=== PATIENT | female | born 1945 | race Caucasian/White ===

== ENCOUNTER 2017-02-01 09:05 | Inpatient (IN) | payer MEDICARE ==
[2017-02-01] VITALS (8 sets, daily range): BP systolic 119–185; BP diastolic 58–98; PULSE 62–88; RESP 16–20; O2SAT 96–100
[~2017-02-01] VITALS: Ht 177.8 cm; Wt 86.1 kg
--- NOTE | 2017-02-01 09:02 | ED.REPORT ---
HPI-Extremity Problem Lower Date of Service Feb 01, 2017 ED Provider: Dr. Goss The pt is a 71 y/o female with a hx of bilateral knee replacement, type II DM, and HTN who presents to the ED via EMS complaining of worsening left thigh pain , onset yesterday after she tripped and fell on the sidewalk. The paramedics were called who helped her into a wheelchair. She reports staying in the wheelchair since then because her pain worsens with movement. She took a hydrocodone this morning but did not experience significant relief. She reports similar pain for several years. It has been investigated multiple times but the imaging results are always normal and no cause of her pain has been discovered. Nursing Notes Stated Complaint: LEFT LEG PAIN Nursing Notes Reviewed: Yes Allergies: Coded Allergies: bupropion HCl (Verified Allergy, Mild, DIZZY, LIGHTHEADED, 02/01/17) oxycodone HCl (Verified Allergy, Unknown, CAN'T FUNCTION, 02/01/17) Scheduled ([Klor-Con]) 10 MEQ PO BID Alprazolam-Expunged Drug, Do Not Renew! (Alprazolam-Expunged Drug, Do Not Renew! ) 1 Mg Tablet 1 MG PO TID Aspirin-Expunged Drug, Do Not Renew! (Aspirin-Expunged Drug, Do Not Renew!) 81 Mg Tablet.dr 81 MG PO BID CHOLECALCIFEROL-Expunged Drug, Do Not Renew! (VITAMIN D-Expunged Drug, Do Not Renew!) 400 Unit Tablet 400 UNIT PO DAILY Cyclobenzaprine-Expunged Drug, Do Not Renew! (Cyclobenzaprine-Expunged Drug, Do Not Renew!) 10 Mg Tablet 10 MG PO DAILY For muscle spasms HCTZ-Expunged Drug, Do Not Renew! (Hydrodiuril-Expunged Drug, Do Not Renew!) 25 Mg Tablet 25 MG PO DAILY Lisinopril-Expunged Drug, Do Not Renew! (Lisinopril-Expunged Drug, Do Not Renew! ) 20 Mg Tablet MG PO DAILY Lorazepam-Expunged Drug, Do Not Renew! (Lorazepam-Expunged Drug, Do Not Renew!) 1 Mg Tablet 1 MG PO PRN Magnesium Oxide (Magnesium) 400 Mg Capsule 250 MG PO BID Metformin-Expunged Drug, Do Not Renew! (Metformin-Expunged Drug, Do Not Renew!) 500 Mg Tab.er.24 500 MG PO BID NITROFURANTOIN MACROCRYSTAL-Expunged Drug, Do (MACRODANTIN-Expunged Drug, Do Not Renew!) 25 Mg Capsule 50 MG PO BID Phentermine Hcl (Suprenza Odt) 37.5 Mg Tab.rapdis 37.5 MG PO BID Simvastatin-Expunged Drug, Choose New Med! (Simvastatin-Expunged Drug, Choose New Med!) 40 Mg Tablet 40 MG PO HS Ubidecarenone (Co Q10) 100 Mg Capsule 100 MG PO DAILY General Time Seen by MD: 09:02 Chief Complaint Thigh injury left Hx Obtained From: Patient Arrived By: Ambulance Onset Occurred: Yesterday Symptom Duration: Since onset Caused by: Fall on ground Location: : Thigh left Quality: Painful Severity: Current: Severe Severity: Maximum: Severe Recent Healthcare: Recent doctor visit Similar Sx Previous: Yes Past Medical History Past Medical History Osteoarthritis Reports: Diabetes mellitus, Hypertension Past Surgical History Both knees Both hips Right shoulder Reports: Appendectomy Smoking History Former Smoker Ambulatory Status Independent Review of Systems Musculoskeletal: Reports: Extremity pain (left thigh) Complete sys rev & neg: except as marked. Physical Exam Initial Vital Signs Vital Signs (First) Date Time Temp Pulse Resp B/P Pulse Ox O2 Delivery O2 Flow Rate FiO2 02/01/17 09:05 36.4 88 18 155/85 100 Room Air Initial VS: Reviewed Head / Eyes: Atraumatic, Normocephalic Neck: Supple, Non-tender, Full range of motion Respiratory: Breath sounds normal, Clear to auscultation, No respiratory distress Cardiovascular: Regular rate & rhythm, Heart sounds normal, Intact distal pulses Abdomen / GI: Soft, Non-tender, No guarding, No rebound, No distention Upper Extremities: Vascular intact, Neuro intact, No swelling, No tenderness Skin: Warm, Dry, No cyanosis Neurologic: Alert, Oriented, Nonfocal Lower Extremity / Pelvis / MS: Neurologic intact, Vascular intact Reports left mid-thigh pain, worsened with movement. Normal peripheral pulses. Good external rotation. Ankle / Foot: Atraumatic, Full range of motion, No swelling, No erythema, Non- tender, No deformity, Neurologic intact, Vascular intact General/Constitutional: Awake, Alert, Cooperative Behavior: Positive: Tearful Interpretation & Diagnostics Lab Results Interpretation Result Diagram: 02/01/17 1022 02/01/17 1022 Test 02/01/17 10:22 White Blood Count 8.5th/mm3 (3.8-10.1) Red Blood Count 4.21mil/mm3 (3.90-5.20) Hemoglobin 12.1g/dL (12.0-15.6) Hematocrit 37.9% (35.0-46.0) Mean Corpuscular Volume 90.0fL (81-100) Mean Corpuscular Hemoglobin 28.7pg (27.0-35.0) Mean Corpuscular Hemoglobin Concent 31.9% (32.0-37.0) Red Cell Distribution Width 14.1% (12.3-15.4) Platelet Count 330bil/L (150-400) Neutrophils (%) (Auto) 82.2% (40-74) Lymphocytes (%) (Auto) 10.4% (14-46) Monocytes (%) (Auto) 6.4% (4-12) Eosinophils (%) (Auto) 0.8% (0-5) Basophils (%) (Auto) 0.1% (0-3) Hold Purple Top Tube Received (Received) Hold Blue Top Tube Received (Received) Sodium Level 138mEq/L (134-144) Potassium Level 4.1mEq/L (3.5-5.2) Chloride Level 98mEq/L (97-108) Carbon Dioxide Level 25mmol/L (18-29) Blood Urea Nitrogen 37mg/dL (8-27) Creatinine 0.89mg/dL (0.57-1.00) Estimat Glomerular Filtration Rate 90mL/min (>59) Glucose Level 232mg/dL (60-99) Calcium Level 10.0mg/dL (8.5-10.1) Total Bilirubin 0.5mg/dL (0.0-1.2) Aspartate Amino Transf (AST/SGOT) 27U/L (0-50) Alanine Aminotransferase (ALT/SGPT) 11U/L (0-32) Alkaline Phosphatase 104U/L (25-165) Total Protein 8.1g/dL (6.4-8.4) Albumin 4.6g/dL (3.4-5.0) Hold [place] Top Tube Received (Received) ECG Interpretation ECG Interpretation: Normal sinus rhythm. Rate 77. Time: 13:09 Interpreted by: ED physician X-Ray Interpretation Xray Interpretation: IMPRESSION: Acute appearing fracture involving the lateral cortex of the proximal left femoral diaphysis, immediately adjacent to the tip of the left total hip arthroplasty previously present. Dictated by: Ben Parker M.D. on 02/01/2017 at 13:16 Approved by: Ben Parker M.D. on 02/01/2017 at 13:18 X-Ray Ordered: Femur left Interpretation / Wet Read by: Interpret - Radiologist Re-Eval/Medical Decision Re-Evaluation/Progress #1: Time of Eval: 09:24 Re-Evaluation/Progress Note: Checked [facility]. The pts last hydrocodone prescription was filled on 12/05 for 120 tabs of 7.5/325 Vicodin Re-Evaluation/Progress #2: Time of Eval: 11:47 Re-Evaluation/Progress Note: Discussed the need to do an X-ray. The pt understands and agrees. All questions answered. Re-Evaluation/Progress #3: Time of Eval: 12:53 Re-Evaluation/Progress Note: Discussed imaging results and plan to admit the pt. She understands and agrees with the plan. All questions answered. Re-Evaluation/Progress #4: Time of Eval: 14:35 Re-Evaluation/Progress Note: Informed the pt that she will be further evaluated by Dr. Kramer. She understands. All questions answered. Consultation #1: Referral / Consult Name: Chris Kramer MD Consulted With: Orthopedic Call Returned at: 12:56 Frequency Checker: Will see patient, Agrees with eval, Agrees with plan Consultation #2: Referral / Consult Name: Jayden Chand MD Consulted With: Hospitalist Call Returned at: 13:21 Frequency Checker: Will see patient, Agrees with eval, Agrees with plan, Accepts admit Counseled Regarding: Diagnosis, Lab results, Need for admission Discharge & Departure Impression: Primary Impression: Left femoral shaft fracture Encounter type: initial encounter Fracture type: closed Fracture morphology : unspecified fracture morphology Qualified Code: S72.302A - Unspecified fracture of shaft of left femur, initial encounter for closed fracture Disposition: ADMITTED TO HOSPITAL Referrals: Shira Jacobson (PCP) Scribe Attestation Portions of this note were transcribed by Joan Senior. Dr.Brownell Karri, personally performed the history,physical exam and medical decision-making;I reviewed and confirmed the accuracy of the information in the transcribed note. Signed by Wil Juarez. 02/01/17 copies to: Shira Jacobson Kirk H MD Feb 01, 2017 09:02 Joan Senior Feb 01, 2017 11:42
[~2017-02-01 09:05] MED LIST: ALPR1TAB2 PO; ASPI-378 PO; ATI1 PO; CHOL400T41 PO; CYCL10TA9 PO; HCTZ25 PO; KLOR-CON PO; LISINOPRIL (*)20 MG PO; MAGN400C PO; METF-487 PO; NITR25CA PO; PHEN-612 PO; SIMV40TA5 PO; UBID100C27 PO
[2017-02-01] MEDS ORDERED: HYDROcodone-APAP 7.5-325 mg Tablet PO ONE (09:25)
[2017-02-01 13:07] LABS: BASOPHILS % (AUTO) 0.1 % (0-3); EOSINOPHILS % (AUTO) 0.8 % (0-5); MONOCYTES % (AUTO) 6.4 % (4-12); Mean Corpuscular Hemoglobin 28.7 pg (27.0-35.0); NEUTROPHILS % (AUTO) 82.2 % (40-74); Platelet Count 330 bil/L (150-400)
--- NOTE | 2017-02-01 13:20 | DRSVH ---
PROCEDURE: X-RAY LEFT FEMUR, TWO VIEWS ([id number]) INDICATIONS: trauma TECHNIQUE: 2 views of the femur were acquired. COMPARISON: [facility], CR, XR PELVIS W LATERAL HIP LT, 01/05/2016, 15:24. FINDINGS: Bones: No dislocations. No suspicious bony lesions. There is a diagonal fracture that extends thro ugh the lateral cortex of the proximal left femoral diaphysis, at the axial level of the tip of the f emoral component of the arthroplasty. This fracture that extends cephalad its exact exit point more superiorly is not seen. More inferiorly no trauma seen over the femur including at the left knee art hroplasty. Soft tissues: No suspicious soft tissue calcifications or masses. IMPRESSION: Acute appearing fracture involving the lateral cortex of the proximal left femoral diaphy sis, immediately adjacent to the tip of the left total hip arthroplasty previously present. Dictated by: Ben Parker M.D. on 02/01/2017 at 13:16 Approved by: Ben Parker M.D. on 02/01/2017 at 13:18
[2017-02-01] MEDS ORDERED: Alum-Mag Hydrox-Simeth 30 mL Suspension PO PRN (13:25)
[2017-02-01] MEDS ORDERED: Ondansetron 2 mg/mL 2 mL Inj IVPUSH PRN (13:25)
[2017-02-01] MEDS ORDERED: Polyethylene Glycol (PEG) 17 Gm Powder PO PRN (13:25)
--- NOTE | 2017-02-01 13:25 | PCM.HPMED ---
Subjective Date of Service Feb 01, 2017 Primary Provider: Admitting Physician: Primary Care Physician: Mitali Attending Physician: Chief Complaint: Left hip pain History of Present Illness: The pt is a 71 y/o female with a hx of bilateral knee replacement, type II DM, HTN, ?PVD presented to the ED via EMS complaining of worsening left thigh pain that started yesterday after she tripped and fell on the sidewalk.XR showed Acute appearing fracture involving the lateral cortex of the proximal left femoral diaphysis. Ortho was consulted. Allergies Coded Allergies: bupropion HCl (Verified Allergy, Mild, DIZZY, LIGHTHEADED, 02/01/17) oxycodone HCl (Verified Allergy, Unknown, CAN'T FUNCTION, 02/01/17) PMH Surgical History Appendectomy Social History Hx Alcohol Use: No Hx Substance Use: Yes (MARIJUANA) Hx Tobacco Use: No Smoking Status: Former Smoker Exam Vital Signs Vital Sign - Last Date Time Temp Pulse Resp B/P Pulse Ox O2 Delivery O2 Flow Rate FiO2 02/01/17 12:25 185/69 02/01/17 10:33 82 17 99 Room Air 02/01/17 10:12 36.6 Exam GENERAL: Alert, not in distress, cooperative HEAD: atraumatic, normocephalic, no bruises. EYES: KELSEY, EOMI, anicteric, able to fully open and close eyelids SKIN: Skin color normal, turgor normal. No visible rashes or lesions. EAR, NOSE, MOUTH, THROAT: Lips, oral mucosa, tongue gums, oropharynx are moist , pink, no lesions. Ears normal appearance, no lesions. NECK: no jugulovenous distention; supple ROM normal. RESPIRATORY: Lungs clear to auscultation. Good diaphragmatic excursion. CARDIAC: normal S1 and S2; no rubs, murmurs, or gallops; regular rate and rhythm ABDOMEN: Abdomen soft, non-tender. BS normal. No masses or organomegaly. MUSCULOSKELETAL: ROM decreased in the left hip secondary to fracture and pain, muscles are not tender EXTREMITIES: no pitting edema in LE, no new deformities or skin discoloration. NEURO: Alert, oriented X 3, Sensation grossly intact., Cranial nerves II-XII intact, Grossly normal motor function. PULSES: 2+ radial, 2+ carotid REVIEW OF SYSTEMS: GENERAL: no malaise, no fevers., SEE HPI HEENT: Negative for frequent or significant headaches All other reviewed and negative other than HPI. Lab and Diagnostics Result Diagram: 02/01/17 1022 X-Rays, CTs and MRIs PROCEDURE: X-RAY LEFT FEMUR, TWO VIEWS ([id number]) INDICATIONS: trauma TECHNIQUE: 2 views of the femur were acquired. COMPARISON: [facility], CR, XR PELVIS W LATERAL HIP LT, 01/05/2016 , 15:24. FINDINGS: Bones: No dislocations. No suspicious bony lesions. There is a diagonal fracture that extends through the lateral cortex of the proximal left femoral diaphysis, at the axial level of the tip of the femoral component of the arthroplasty. This fracture that extends cephalad its exact exit point more superiorly is not seen. More inferiorly no trauma seen over the femur including at the left knee arthroplasty. Soft tissues: No suspicious soft tissue calcifications or masses. IMPRESSION: Acute appearing fracture involving the lateral cortex of the proximal left femoral diaphysis, immediately adjacent to the tip of the left total hip arthroplasty previously present. Assessment & Plan 71 year old female with a past medical history of hypertension, diabetes, peripheral vascular disease presented to the hospital with left hip pain that started yesterday after the patient tripped and fell on her left side. Patient was diagnosed with Acute appearing fracture involving the lateral cortex of the proximal left femoral diaphysis. Orthopedic surgeon was consulted. Acute appearing fracture involving the lateral cortex of the proximal left femoral diaphysis - IV and PO opioids for pain - Heparin for DVT proph DM II - stable - Diabetic diet - ISS, resume home meds later after we able to confirm it with patient's pharmacy as she does not remember details. HTN - stable - hold home meds PVD - resume ASA DVT PROPHYLAXIS: Heparin Code status: Full code Disposition: discharge after patient improves. Plan of care discussed with ED physician; Labs, radiology tests reviewed. Plan of care, medication side effects, home medication, diagnostic procedures and available alternatives were discussed and reviewed with patient/family . All questions answered. Patient/family verbalized understanding, approved and agreed to plan of care. Jayden Chand MD Feb 01, 2017 13:25
--- NOTE | 2017-02-01 14:19 | DRSVH ---
PROCEDURE: X-RAY CHEST ONE VIEW, PORTABLE ([id number]) INDICATIONS: per op TECHNIQUE: One view of the chest was acquired. COMPARISON: None. FINDINGS: Surgical changes and devices: None. Lungs and pleura: There is left basilar atelectasis. No pleural effusions or pneumothorax. Mediastinum: Mediastinal contours appear normal. Heart size is normal. Bones and chest wall: No suspicious bony lesions. Overlying soft tissues appear unremarkable. IMPRESSION: Left basilar atelectasis. Dictated by: Jonny Fountain M.D. on 02/01/2017 at 14:17 Approved by: Jonny Fountain M.D. on 02/01/2017 at 14:17
[2017-02-01 15:32] LABS: APPEARANCE,URINE HAZY (CLEAR,HAZY); COLOR,URINE STRAW (YELLOW); PH,URINE 5.5 (5.0-8.0)
[2017-02-01 15:33] LABS: OCCULT BLOOD,URINE NEGATIVE (NEGATIVE); UROBILINOGEN,URINE NORMAL (NORMAL)
[2017-02-01] MEDS: Heparin 5,000 Unit/mL Inj SUBQ SCH (16:30)
[2017-02-01] MEDS ORDERED: Glucose 40% Oral Gel 15 Gm Tube PO PRN (17:45)
--- NOTE | 2017-02-01 18:22 | NUR ---
Admit/med rec Admitted to [facility] room 1018 from ER at 14:45. Alert and oriented, denies pain at rest. States she had been sitting in a wheelchair at home all night. blanchable redness to buttocks. Admit RN and rn discharge assisting with med rec. Unable to complete at this time r/t unreliable reporting from patient and daughter. Messages left at providers offices to clarify. aware.
[2017-02-01] MEDS: Insulin LISPRO 300 Unit/3 mL Inj SUBQ SCH (21:21)
[2017-02-02] MEDS: Heparin 5,000 Unit/mL Inj SUBQ SCH ×3 (00:10→16:22)
[2017-02-02 00:50] VITALS: BP 135/75; PULSE 83; RESP 18; O2SAT 96
--- NOTE | 2017-02-02 03:13 | NUR ---
Pain Pt. reports pain in hip and back. 2mg IV morphine given and effective for pt's pain. Will continue to monitor.
[2017-02-02 04:50] VITALS: BP 132/76; PULSE 78; RESP 20; O2SAT 95
[2017-02-02] MEDS: Insulin LISPRO 300 Unit/3 mL Inj SUBQ SCH ×4 (08:00→21:40)
[2017-02-02 08:49] VITALS: BP 124/61; PULSE 71; RESP 18; O2SAT 98
[2017-02-02] MEDS ORDERED: CLOP75TA28 PO (12:46)
[2017-02-02] MEDS ORDERED: INSU100I13 SC (12:46)
[2017-02-02] MEDS ORDERED: HUM100IN3 SC (12:46)
[2017-02-02] MEDS ORDERED: AMLO5TAB2 PO (12:46)
[2017-02-02] MEDS ORDERED: HYDR25TA4 PO (12:49)
[2017-02-02] MEDS ORDERED: MAGN400T4 PO (12:49)
[2017-02-02] MEDS ORDERED: POTA10TA12 PO (12:55)
[2017-02-02] MEDS ORDERED: ATOR20TA65 PO (12:55)
[2017-02-02] MEDS ORDERED: CHOL10008 PO (12:55)
[2017-02-02] MEDS ORDERED: METF500T7 PO (12:56)
[2017-02-02] MEDS ORDERED: LISI40TA PO (12:59)
[2017-02-02] MEDS ORDERED: ASPI-973 PO (12:59)
--- NOTE | 2017-02-02 13:57 | PCM.PNMED ---
Subjective Date of Service Feb 02, 2017 Exam Vital Signs Vital Sign - Last Date Time Temp Pulse Resp B/P Pulse Ox O2 Delivery O2 Flow Rate FiO2 02/02/17 08:49 36.5 71 18 124/61 98 Room Air Intake and Output 02/01/17 02/01/17 02/02/17 Cumulative From/Thru 15:00 23:00 07:00 02/01/17 10:12 - 02/01/17 17:50 Intake Total 0 ml 0 ml Output Total 900 ml 400 ml 1300 ml Balance -900 ml -400 ml -1300 ml Intake Oral 0 ml 0 ml Output Urine Total 900 ml 400 ml 1300 ml Exam GENERAL: Alert, not in distress HEAD: atraumatic, normocephalic, no bruises. EYES: EOMI, anicteric, able to fully open and close eyelids SKIN: Skin color normal, turgor normal. No visible rashes or lesions. EAR, NOSE, MOUTH, THROAT: Lips, oral mucosa, tongue are moist, pink, no lesions. NECK: no jugulovenous distention; supple ROM normal. RESPIRATORY: Lungs clear to auscultation. Good diaphragmatic excursion. CARDIAC: normal S1 and S2; no rubs, murmurs, or gallops; regular rate and rhythm ABDOMEN: Abdomen soft, non-tender. BS normal. No masses or organomegaly. MUSCULOSKELETAL: ROM decreased in the left hip secondary to fracture and pain, muscles are not tender EXTREMITIES: no pitting edema in LE, no new deformities NEURO: Alert, oriented X 3, Cranial nerves II-XII intact, Grossly normal motor function. PULSES: 2+ radial, 2+ carotid IVs and Medications Medications Reviewed: Medications were reviewed in detail Lab and Diagnostics Result Diagram: 02/01/17 1022 02/01/17 1022 X-Rays, CTs and MRIs PROCEDURE: X-RAY LEFT FEMUR, TWO VIEWS ([id number]) INDICATIONS: trauma TECHNIQUE: 2 views of the femur were acquired. COMPARISON: [facility], CR, XR PELVIS W LATERAL HIP LT, 01/05/2016 , 15:24. FINDINGS: Bones: No dislocations. No suspicious bony lesions. There is a diagonal fracture that extends through the lateral cortex of the proximal left femoral diaphysis, at the axial level of the tip of the femoral component of the arthroplasty. This fracture that extends cephalad its exact exit point more superiorly is not seen. More inferiorly no trauma seen over the femur including at the left knee arthroplasty. Soft tissues: No suspicious soft tissue calcifications or masses. IMPRESSION: Acute appearing fracture involving the lateral cortex of the proximal left femoral diaphysis, immediately adjacent to the tip of the left total hip arthroplasty previously present. Assessment & Plan 71 year old female with a past medical history of hypertension, diabetes, peripheral vascular disease presented to the hospital with left hip pain that started yesterday after the patient tripped and fell on her left side. Patient was diagnosed with Acute appearing fracture involving the lateral cortex of the proximal left femoral diaphysis. Orthopedic surgeon was consulted. Acute appearing fracture involving the lateral cortex of the proximal left femoral diaphysis - IV and PO opioids for pain - orhtopedic surgery was consulted by ED. - Heparin for DVT proph DM II - stable - Diabetic diet - ISS, resume home meds later after we able to confirm it with patient's pharmacy as she does not remember details. HTN - stable - hold home meds PVD - stable - resume ASA DVT PROPHYLAXIS: Heparin Code status: Full code Disposition: discharge after patient improves. Plan of care discussed with treatment team; Labs, radiology tests reviewed. Plan of care, available alternatives were discussed and reviewed with patient. All questions answered. Patient verbalized understanding, approved and agreed to plan of care. VTE Mechanical Devices: Intermittant Pneumatic CD Jayden Chand MD Feb 02, 2017 13:57
--- NOTE | 2017-02-02 15:06 | NUR ---
Social Work: Initial Assessment Data: See initial assessment. Patient is a 71 year old female who was admitted on 02/01/17 for a left femur fracture per H&P. Patient's insurance is Medicare and [employer] Supp. No PCP is listed at this time. EMR reviewed. SW met with patient to discuss discharge planning. SW role explained. Patient reports that she resides with two roommates in [place]. Patient reports that the home is 2 stories and there are 3 steps at entrance. Patient confirms that she only utilizes the main level. Patient considers her friend Alexandrea Meyer to be a good source of support. Patient confirms that her daughter Franca is her DPOA and that AD have been completed on her behalf. Patient confirms that she is I at baseline and is able to perform all of her ADLs and care needs. Patient states that she does have a cane and a walker at home for use if needed. Patient confirms that she drives via POV. Patient reports that she has used [facility] in the past for RN, PT, OT and PROJECT ASSISTANT. Patient denies a hx of SNF. Patient denies having terminal gauger care insurance or VA benefits. Patient states that upon discharge she will be transported home by a family member or friend. SW provided patient with a discharge planning checklist booklet and encouraged her to call with any questions or concerns. Phone number provided. SW will continue to follow. Assessment: Patient will likely discharge home when medically stable. Plan: Patient will likely discharge home when medically stable. Patient will arrange her own transportation needs. SW will follow for additional needs. SHERRIE Han Addendum: 02/02/17 at 1523 by PATSY CHICAS Amended: Links added.
[2017-02-02 15:19] VITALS: BP 109/66; PULSE 84; RESP 18; O2SAT 98
--- NOTE | 2017-02-02 17:56 | NUR ---
pain management patient has been c/o periodic pain right hip and low back throughout day. IV Morphine PRN and position changes have been effective. educated patient regarding pain management; small doses of pain meds more frequently with pain level starts to increase instead of waiting until pain is too high. patient verbalized understanding. NPO after MN for surgery tomorrow. patient aware and agrees with plan of care.
[2017-02-02 20:45] VITALS: BP 149/73; PULSE 89; RESP 18; O2SAT 98
[2017-02-03] VITALS (14 sets, daily range): BP systolic 121–156; BP diastolic 47–81; PULSE 68–95; RESP 16–21; O2SAT 93–99
[2017-02-03] MEDS: Heparin 5,000 Unit/mL Inj SUBQ SCH ×3 (00:19→17:35)
[2017-02-03] MEDS ORDERED: fentaNYL-PF 50 mCg/mL 2 mL Inj ONE (01:27)
[2017-02-03] MEDS ORDERED: Glucose 40% Oral Gel 15 Gm Tube PO ONE (01:27)
[2017-02-03] MEDS ORDERED: Rocuronium 10 mg/mL 5 mL Inj ONE (01:27)
[2017-02-03] MEDS ORDERED: Phenylephrine/NS 100 mCg/mL 10 mL Syringe IVPUSH ONE (01:27)
[2017-02-03] MEDS ORDERED: Ketamine 10 mg/mL 20 mL Inj ONE (01:27)
[2017-02-03] MEDS ORDERED: Propofol 10,000 mCg/mL 20 mL Inj ONE (01:27)
--- NOTE | 2017-02-03 03:30 | NUR ---
Pain Pt. reports back and left hip pain. IV morphine 2mg effective for pain. Pt. educated on NPO status after midnight. Pt. verbalized understanding. Will continue to monitor.
[2017-02-03] MEDS ORDERED: CeFAZolin 2 Gm/50 mL D5W IV Premix IV ONE (06:00)
[2017-02-03] MEDS: Insulin LISPRO 300 Unit/3 mL Inj SUBQ SCH ×4 (08:00→22:32)
--- NOTE | 2017-02-03 11:19 | NUR ---
Transfer to OR Patient given 2mg of Morphine for pain prior to transfer to OR, off unit now to OR.
[2017-02-03] MEDS ORDERED: Lactated Ringer's 1,000 ML IV SCH (11:26)
[2017-02-03] MEDS ORDERED: Lactated Ringer's 500 ML IV PRN (11:26)
[2017-02-03] MEDS ORDERED: Lactated Ringer's 1,000 ML IV ONE ×2 (11:26→12:17)
[2017-02-03] MEDS ORDERED: EPHEDrine Sulfate 50 mg/mL Inj IVPUSH PRN (11:30)
[2017-02-03] MEDS ORDERED: HYDROmorphone 1 mg/mL Inj IVPUSH PRN (11:30)
[2017-02-03] MEDS ORDERED: Dexamethasone 4 mg/mL Inj IVPUSH PRN (11:30)
[2017-02-03] MEDS ORDERED: Phenylephrine 10,000 mCg/mL Inj IVPUSH PRN (11:30)
[2017-02-03] MEDS ORDERED: MetoCLOpramide 5 mg/mL 2 mL Inj IVPUSH PRN (11:30)
[2017-02-03] MEDS ORDERED: Ondansetron 2 mg/mL 2 mL Inj IVPUSH PRN (11:30)
[2017-02-03] MEDS ORDERED: fentaNYL-PF 50 mCg/mL 2 mL Inj IVPUSH PRN (11:30)
--- NOTE | 2017-02-03 11:32 | PCM.HPANE ---
Patient Data Surgeon Admitting Provider:Jayden Chand MD Attending Provider:Jayden Chand MD Primary Care Physician:Mitali Other Provider: Reason for Visit Left Femur Fracture Ht/WT & BMI Height (Feet): 5 Height (Inches): 10.00 Weight (Kilograms): 86.100 Body Mass Index 27.17 Allergies Coded Allergies: bupropion HCl (Verified Allergy, Mild, DIZZY, LIGHTHEADED, 02/01/17) oxycodone HCl (Verified Allergy, Unknown, CAN'T FUNCTION, 02/01/17) Past Anesthesia History Anesthesia History: Denies:: Abnormal Airway, Anesthesia Reactions, Difficult Intubation, Fam Anesthesia Reaction, Fam Malignant Hypertherm, Malignant Hyperthermia Diabetes History Hx Diabetes?: Yes (DM) Current Bedside Blood Glucose: 180 MRSA MRSA: No Medications Blood Thinner: Aspirin, Plavix Last Dose Blood Thinner: Feb 01, 2017 Hypertension Medication: Yes Home Meds Incl Beta Katelyn: No Reported Medications Aspirin 81 Mg Tzoufc34 Mg PO BID Ref 0 02/02/17 Lisinopril 40 Mg Zrjlmj65 Mg PO DAILY #90 02/02/17 Metformin ER 500 Mg Tablet2,000 Mg PO QPM #360 02/02/17 Cholecalciferol (Vitamin D3) (Vitamin D3)1,000 Unit Tab.chew1,000 Unit PO DAILY 02/02/17 Potassium Chloride ER 10 Meq Ihgahe53 Meq PO DAILY #90 02/02/17 Atorvastatin Calcium 20 Mg Wwfznf72 Mg PO HS #90 02/02/17 Magnesium Oxide 400 Mg Vpajip871 Mg PO DAILY 02/02/17 Hydrochlorothiazide 25 Mg Viuazc82-44 Mg PO QAM #90 take 25 mg daily unless systolic bp >150, then take 50 mg 02/02/17 Amlodipine 5 Mg Tablet5 Mg PO QAM #30 02/02/17 Insulin Glargine (Lantus U100 Solostar Insulin Pen)100 Unit/1 Ml Insuln.pen15- 30 Units SC HS #15 02/02/17 Clopidogrel 75 Mg Rngxpo87 Mg PO DAILY #30 02/02/17 Hum Insulin NPH/Reg Insulin Hm (HUMulin 70/30 U100 Insulin Kwikpen)100 Unit/1 Ml Insuln.pen10 Units SC QAM #15 02/02/17 Discontinued Reported Medications NITROFURANTOIN MACROCRYSTAL-Expunged Drug, Do (MACRODANTIN-Expunged Drug, Do Not Renew!)25 Mg Syqbgtb00 Mg PO BID 03/29/13 Magnesium Oxide (Magnesium)400 Mg Eysgmvr559 Mg PO DAILY 03/29/13 [Klor-Con] No Conflict Check10 Meq PO BID 03/29/13 Phentermine Hcl (Suprenza Odt)37.5 Mg Tab.gmjrvu08.5 Mg PO BID 03/29/13 Ubidecarenone (Co Q10)100 Mg Elamnbk136 Mg PO DAILY 03/29/13 Lisinopril-Expunged Drug, Do Not Renew! 20 Mg Tablet Mg PO DAILY 03/29/13 CHOLECALCIFEROL-Expunged Drug, Do Not Renew! (VITAMIN D-Expunged Drug, Do Not Renew!)400 Unit Nupipv851 Unit PO DAILY 03/29/13 Aspirin-Expunged Drug, Do Not Renew! 81 Mg Tablet.dr81 Mg PO BID 03/29/13 Cyclobenzaprine-Expunged Drug, Do Not Renew! 10 Mg Cmuarn83 Mg PO DAILY For muscle spasms 03/29/13 Simvastatin-Expunged Drug, Choose New Med! 40 Mg Nwpqvp14 Mg PO HS 03/29/13 Metformin-Expunged Drug, Do Not Renew! 500 Mg Tab.er.41614 Mg PO BID 03/29/13 HCTZ-Expunged Drug, Do Not Renew! (Hydrodiuril-Expunged Drug, Do Not Renew!)25 Mg Xlensd67-60 Mg PO DAILY take 25 mg hydrochlorothiazide daily unless systolic bp >150, then take 50 mg 03/29/13 Alprazolam-Expunged Drug, Do Not Renew! 1 Mg Tablet1 Mg PO TID 03/29/13 Lorazepam-Expunged Drug, Do Not Renew! 1 Mg Tablet1 Mg PO PRN 03/29/13 History History of ENT Problems?: Yes HEENT History: Positive for:: Glaucoma Denies:: Abnormal Airway Difficult Intubation Dysphagia Hearing Problem Denture Type: None Teeth Condition: Within Normal Limits Hx of Heart Problems?: Yes Cardiovascular History: Positive for:: Hypertension Denies:: AICD Atrial Fibrillation Chest Pain Congestive Heart Failure Pacemaker Valvular Heart Disease Other Cardiac History: PAD 10/22 procedure, no stents Hx of Respiratory Problem?: Yes Respiratory History: Positive for:: Pneumonia (MANY YEARS AGO) Denies:: Asthma COPD Cough Hemoptysis Tuberculosis Hx Neurologic Problems?: No Neurological History: Positive for:: Dizziness (occasional) Denies:: CVA Dementia Hx of GI Problems?: No Hx of Problems?: No Genitourinary History: Positive for:: Urinary Tract Infection (hx of) HX of Peritoneal Dialysis: No Other Pertinent History: neurogenic bladder, self caths occasionally, last was months ago. Female Hx: Positive for:: Problems with Breasts? (R lumpectomy, benign) Denies:: Currently Endometriosis Pelvic Inflammatory Hx Musculoskeletal Problems?: Yes Musculoskeletal History: Positive for:: Joint Replacement (bilat knees and hips) Hx of Psycho/Social Problems?: No Psycho Social History: Denies:: Anxiety Hx Depression Hx Surgeries?: Yes (HIATAL CYST, BOTH KNEES, BOTH HIPS, RT SHOULDER TEAR, APPENDECT.) Hx Any Other Health Problems?: Yes History Blood Transfusions: Positive for:: Accept Blood Products? Denies:: Blood Transfusions Hx Diabetes: Yes (DM)Bedside Blood Glucose: 180 Hx Alcohol Use: Yes ("berly")Hx Substance Use: Yes (MARIJUANA) Smoking Status: Former Smoker Stop/Bang Treated for Sleep Apnea?: No Do You Have a CPAP Machine?: No S-Snoring: Do You Snore Loudly: No T-Tired: feel tired, fatigued: No O-Obsered: Observed not breath: No P-Blood Pressure: treated: Yes B- Body Mass Index > 35 kg/m2: No A- Age over 50: Yes N- Neck Large Circumference: No G- Gender Male: No PRITI Total Score: 1 PRITI Risk Assessment: Low Risk, <3 Yes Risk Assessment Category Category 1A: Patient has history of documented sleep apnea, and HAS NOT received any narcotic, sedative or anesthesia administration during this stay. Category 1B: Patient has history of documented sleep apnea, and HAS received any narcotic , sedative or anesthesia administration during this stay Category 2: Patient has SUSPECTED Obstructive Sleep Apnea, and HAS received any narcotic , sedative or anesthesia administration during this stay. Category 3: Patient has SUSPECTED Obstructive Sleep Apnea and HAS NOT received narcotic, sedative or anesthesia administration during this stay. Category 4: Outpatient in Procedural Areas with known sleep apnea or who screen positive for High Risk via the STOP/BANG questionnaire. Exam Exam Vital Signs Vital Signs Date Time Temp Pulse Resp B/P Pulse Ox O2 Delivery O2 Flow Rate FiO2 02/03/17 08:46 37.6 68 18 139/68 98 Room Air 02/03/17 06:20 37.6 80 16 156/78 98 Room Air General Appearance: Alert, Oriented X3, Cooperative, No Acute Distress HEENT/AIRWAY: MP 2 Lungs: Clear to Auscultation, Normal Air Movement Heart: Exam Unremarkable, Regular Rate/Rhythm, No Murmurs/Rubs/Gallops Meds/Labs/Diagnostics Admission Meds Current Medications Atorvastatin Calcium (Lipitor) 20 mg HS PO Last administered on 02/02/17t 21:28 ; Start 02/02/17 at 21:00 Bedside Blood Glucose: 180 Labs Test 02/01/17 10:22 02/01/17 14:45 White Blood Count 8.5th/mm3 (3.8-10.1) Red Blood Count 4.21mil/mm3 (3.90-5.20) Hemoglobin 12.1g/dL (12.0-15.6) Hematocrit 37.9% (35.0-46.0) Mean Corpuscular Volume 90.0fL (81-100) Mean Corpuscular Hemoglobin 28.7pg (27.0-35.0) Mean Corpuscular Hemoglobin Concent 31.9% (32.0-37.0) Red Cell Distribution Width 14.1% (12.3-15.4) Platelet Count 330bil/L (150-400) Neutrophils (%) (Auto) 82.2% (40-74) Lymphocytes (%) (Auto) 10.4% (14-46) Monocytes (%) (Auto) 6.4% (4-12) Eosinophils (%) (Auto) 0.8% (0-5) Basophils (%) (Auto) 0.1% (0-3) Hold Purple Top Tube Received (Received) Hold Blue Top Tube Received (Received) Sodium Level 138mEq/L (134-144) Potassium Level 4.1mEq/L (3.5-5.2) Chloride Level 98mEq/L (97-108) Carbon Dioxide Level 25mmol/L (18-29) Blood Urea Nitrogen 37mg/dL (8-27) Creatinine 0.89mg/dL (0.57-1.00) Estimat Glomerular Filtration Rate 90mL/min (>59) Glucose Level 232mg/dL (60-99) Calcium Level 10.0mg/dL (8.5-10.1) Total Bilirubin 0.5mg/dL (0.0-1.2) Aspartate Amino Transf (AST/SGOT) 27U/L (0-50) Alanine Aminotransferase (ALT/SGPT) 11U/L (0-32) Alkaline Phosphatase 104U/L (25-165) Total Protein 8.1g/dL (6.4-8.4) Albumin 4.6g/dL (3.4-5.0) Hold [place] Top Tube Received (Received) Urine Color Straw (YELLOW) Urine Appearance Hazy (CLEAR,HAZY) Urine pH 5.5 (5.0-8.0) Urine Specific Phil Campbell 1.015 (1.003-1.035) Urine Protein Negativemg/dL (NEG,TRACE) Urine Glucose (UA) Negativemg/dL (NEGATIVE) Urine Ketones Negativemg/dL (NEGATIVE) Urine Occult Blood Negative (NEGATIVE) Urine Nitrite Negative (NEGATIVE) Urine Bilirubin Negative (NEGATIVE) Urine Urobilinogen Normalmg/dL (NORMAL) Urine Leukocyte Esterase Negative (NEGATIVE) Urine RBC 0-2/hpf (0-2) Urine WBC 0-5/hpf (0-5) Urine Epithelial Cells Occasional/hpf (NONE-MOD) Urine Crystals None seen (NONE SEEN) Urine Bacteria None/hpf (NONE-FEW) Urine Hyaline Casts None/lpf (NONE) Urine Granular Casts None seen (NONE SEEN) Urine Waxy Casts None seen (NONE SEEN) Urine Red Blood Cell Casts None seen (NONE SEEN) Urine White Blood Cell Casts None seen (NONE SEEN) Urine Mucus Present (None Seen) Urine Trichomonas None seen (NONE SEEN) Urine Yeast None (NONE SEEN) Urinalysis Comment None Urine Culture Reflexed Not indicated Plan Impression Patient chart reviewed, patient interviewed and anesthestic plan with risks, benefits, and alternatives discussed, and informed consent obtained. NPO per Anesth. Guidelines: Yes ASA Physical Status: ASA3 Severe Disease (dm, on plavix, high blood sugar, femoral fx) Anesthetic Plan: GA Bene/Risks/Altern/Consents: Yes HP Complete Prior to Induction: Yes Peng Mccartney MD Feb 03, 2017 11:32
--- NOTE | 2017-02-03 12:48 | CONS ---
[address] [address] CONSULTATION REPORT PATIENT: JUAN ANTONIO CARLNI : 1945 MR#: [id number] ADMIT: 02/01/2017 JOB ID: [id number] DATE OF SERVICE: 02/03/2017 HISTORY OF PRESENT ILLNESS: I was asked to see the patient by the emergency department for evaluation of a femoral periprosthetic fracture. The patient had had a total hip replacement performed by myself many years prior. She reported she had occasional sharp pain when twisting but overall the hip was quite functional until she fell, falling hard on the bathroom floor. Immediate pain and inability to weightbear noted at that time. Her past medical history, social history, family history, and review of systems are as noted and reviewed in the chart. PHYSICAL EXAMINATION: On general exam, she is grossly neurovascular intact in the extremity. Has no open skin lesions. Has substantial pain, primarily at the area of the tip of the prosthesis, with palpation or any motion of the leg. IMAGING: Radiographs revealing a mildly displaced fracture at the tip of the prosthesis. There is no distinct evidence for component loosening. ASSESSMENT AND PLAN: I discussed treatment options with her. I think at this point in time the fracture should be stabilized with a periprosthetic plate before further displacement occurs. She understands and wishes to proceed. She understands and accepts the potential for complication which includes but is not limited to infection, thromboembolic, neurovascular events, as well as the potential for malunion, nonunion, implant failure, and the need for further prosthetic work in the future.
[2017-02-03] MEDS ORDERED: Bupivacaine-MPF 0.5% 30 mL Inj INFILTRATE ONE (13:04)
[2017-02-03] MEDS ORDERED: Insulin Human REGular 300 Unit/3 mL Inj IV ONE (15:30)
--- NOTE | 2017-02-03 16:30 | NUR ---
Return to Floor from OR Patient vital signs stable, is not requesting pain medication at this time, as she stated she was in pain and then stated she was not in pain. Patient is somewhat forgetful. Will continue to monitor patient.
--- NOTE | 2017-02-03 16:58 | PCM.PNMED ---
Subjective Date of Service Feb 03, 2017 Subjective Patient is in bed, just returned from OR, complaining of hip pain. Exam Vital Signs Vital Sign - Last Date Time Temp Pulse Resp B/P Pulse Ox O2 Delivery O2 Flow Rate FiO2 02/03/17 16:42 36.7 89 18 150/79 98 Room Air 02/03/17 15:30 2 Intake and Output 02/02/17 02/02/17 02/03/17 Cumulative From/Thru 15:00 23:00 07:00 02/01/17 10:12 - 02/03/17 06:48 Intake Total 636 ml 900 ml 400 ml 1936 ml Output Total 550 ml 400 ml 600 ml 2850 ml Balance 86 ml 500 ml -200 ml -914 ml Intake Oral 636 ml 900 ml 400 ml 1936 ml Output Urine Total 550 ml 400 ml 600 ml 2850 ml # Bowel Movements 0 0 0 0 Exam GENERAL: Alert, not in distress HEAD: atraumatic, normocephalic EYES: EOMI, anicteric SKIN: Skin color normal, turgor normal. No visible rashes EAR, NOSE, MOUTH, THROAT: Lips, oral mucosa, tongue are moist, pink, no lesions. NECK: no jugulovenous distention; supple ROM normal. RESPIRATORY: Lungs clear to auscultation. CARDIAC: normal S1 and S2; no rubs, murmurs, or gallops; regular rhythm ABDOMEN: Abdomen soft, non-tender. BS normal. No masses or organomegaly. MUSCULOSKELETAL: ROM decreased in the left hip secondary to fracture and pain, muscles are not tender EXTREMITIES: no pitting edema in LE, no new deformities NEURO: Alert, oriented X 3, Cranial nerves II-XII intact, Grossly normal motor function. PULSES: 2+ radial, 2+ carotid REVIEW OF SYSTEMS: GENERAL: no malaise, no fevers., SEE HPI HEENT: Negative for frequent or significant headaches All other reviewed and negative other than HPI. IVs and Medications Medications Reviewed: Medications were reviewed in detail Lab and Diagnostics Result Diagram: 02/01/17 1022 02/01/17 1022 X-Rays, CTs and MRIs PROCEDURE: X-RAY LEFT FEMUR, TWO VIEWS ([id number]) INDICATIONS: trauma TECHNIQUE: 2 views of the femur were acquired. COMPARISON: [facility], CR, XR PELVIS W LATERAL HIP LT, 01/05/2016 , 15:24. FINDINGS: Bones: No dislocations. No suspicious bony lesions. There is a diagonal fracture that extends through the lateral cortex of the proximal left femoral diaphysis, at the axial level of the tip of the femoral component of the arthroplasty. This fracture that extends cephalad its exact exit point more superiorly is not seen. More inferiorly no trauma seen over the femur including at the left knee arthroplasty. Soft tissues: No suspicious soft tissue calcifications or masses. IMPRESSION: Acute appearing fracture involving the lateral cortex of the proximal left femoral diaphysis, immediately adjacent to the tip of the left total hip arthroplasty previously present. Assessment & Plan 71 year old female with a past medical history of hypertension, diabetes, peripheral vascular disease presented to the hospital with left hip pain that started yesterday after the patient tripped and fell on her left side. Patient was diagnosed with Acute appearing fracture involving the lateral cortex of the proximal left femoral diaphysis. Orthopedic surgeon was consulted. Patient had surgery 02/03/2017 Acute appearing fracture involving the lateral cortex of the proximal left femoral diaphysis; s/p surgery 02/03/17 - stable - IV and PO opioids for pain - orhtopedic surgery was consulted by ED. plan - Heparin for DVT proph - IV and PO opioids for pain DM II - stable - Diabetic diet - ISS, resume home meds later after we able to confirm it with patient's pharmacy as she does not remember details. HTN - stable - hold home meds PVD - stable - resume ASA DVT PROPHYLAXIS: Heparin Code status: Full code Disposition: discharge after patient improves. Plan of care discussed with treatment team; Labs, radiology tests reviewed. Plan of care, available alternatives were discussed and reviewed with patient. All questions answered. Patient verbalized understanding, approved and agreed to plan of care. VTE Mechanical Devices: Intermittant Pneumatic CD Jayden Chand MD Feb 03, 2017 16:58
--- NOTE | 2017-02-03 18:29 | OP ---
[address] [address] OPERATIVE REPORT PATIENT: JUAN ANTONIO CARLIN : 1945 MR#: [id number] ADMIT: 02/01/2017 JOB ID: [id number] DATE OF SURGERY: 02/03/2017 SURGEON: Chris Kramer MD EGG SORTER: Jenn Kamara PA-C (Enrollment Nurse required due to the complexity of the operation). PREOPERATIVE DIAGNOSIS(ES): Left periprosthetic femoral shaft fracture. POSTOPERATIVE DIAGNOSIS(ES): Left periprosthetic femoral shaft fracture. PROCEDURE: 1. Open reduction, internal fixation of left femur fracture. 2. Two plane C-arm visualization of fracture, fracture reduction and implant position. INDICATIONS: This woman has a total hip arthroplasty many years old; however no evidence of failure or loosening. She fell in the bathroom and incurred this fracture. ORIF is planned to stabilize the fracture. She understands potential for risks and complications which include but is not limited to infection, thromboembolic, neurovascular events, as well as potential for malunion, nonunion and implant failure. PROCEDURE IN DETAIL: The patient was prepped and draped in usual sterile fashion. The lateral incision was made. Dissection carried down through the deep fascia. Vastus lateralis was identified, fascia was opened in front or anterior to the intermuscular septum. Careful dissection down identifying and coagulating the aqueduct and reservoir keeper vessels, creating a dry field. Femoral shaft was exposed, fracture was identified. A reconstruction plate was applied. Two plane C-arm was utilized to identify and create appropriate plate position. Five proximal unicortical screws were utilized followed by two cables tensioned to 100 pounds creating excellent stability of the construct. The wounds were irrigated copiously with sterile irrigant and dilute Betadine solution. Following this, the vastus was closed with 2-0 Vicryl running stitch, the deep fascia was closed with a #2 Quill, 2-0 Vicryl and a 3-0 intracuticular with Steri-Strips utilized for the final skin closure. Patient was taken to the recovery room in stable condition. POSTOPERATIVE PLAN: Will be for strict toe-touch weightbearing for six weeks. Decision made about progressive weightbearing at that point in time after obtaining an interval radiograph.
--- NOTE | 2017-02-03 20:08 | PCM.ANEP1 ---
Post Anesthesia PACU Phase 1 Assessment Vital Signs Vital Signs Date Time Temp Pulse Resp B/P Pulse Ox O2 Delivery O2 Flow Rate FiO2 02/03/17 16:42 36.7 89 18 150/79 98 Room Air 02/03/17 16:15 86 18 137/58 93 Room Air 02/03/17 16:00 88 18 148/63 94 Room Air 02/03/17 15:45 91 18 121/55 97 Room Air 02/03/17 15:30 88 17 149/68 98 Nasal Cannula 2 02/03/17 15:15 37.3 89 18 153/47 96 Nasal Cannula 2 02/03/17 15:10 89 18 145/71 96 Nasal Cannula 2 02/03/17 15:05 90 17 132/81 97 Nasal Cannula 2 02/03/17 15:00 93 18 150/73 94 Room Air 02/03/17 14:55 95 20 145/67 99 Simple Mask 8 02/03/17 14:50 38.3 94 21 147/68 98 Simple Mask 8 Level of Alertness: Sleepy, easy to arouse GARCIA's with Equal Strength: Yes (Other than left leg/femur fx) Pain: Yes (she initially said pain, then said no pain, did not want Rx) Pain Scale Score: 4 Nausea or Vomiting: No CV Function & Hydration Stable: Yes Airway Device: none Lungs: Clear to Auscultation, Normal Air Movement Dermatome Level: Full Sensation PACU Phase 2 Assessment Complications: No Follow up Care: No Patient Instructions Provided: N/A Peng Mccartney MD Feb 03, 2017 20:08
[2017-02-03] MEDS: CeFAZolin Inj 2 GM in IV Premix 1 EACH IV SCH (22:27)
[2017-02-04 01:30] VITALS: BP 163/86; PULSE 89; RESP 16; O2SAT 100
[2017-02-04] MEDS: Heparin 5,000 Unit/mL Inj SUBQ SCH ×4 (01:43→23:10)
--- NOTE | 2017-02-04 04:52 | NUR ---
Pain/Mentation Pt. has been alert and oriented x3 for the shift. Pt. reports pain. IV Morphine 2mg given, and PO Tylenol given. Will continue to monitor.
[2017-02-04 04:57] VITALS: BP 134/68; PULSE 95; RESP 20; O2SAT 94
[2017-02-04] MEDS: CeFAZolin Inj 2 GM in IV Premix 1 EACH IV SCH (06:09)
[2017-02-04] MEDS: Insulin LISPRO 300 Unit/3 mL Inj SUBQ SCH ×4 (08:05→21:11)
--- NOTE | 2017-02-04 09:32 | PCM.PNMED ---
Subjective Date of Service Feb 04, 2017 Subjective Patient is in the bed, c/o some hip discomfort, otherwise she is doing well. Exam Vital Signs Vital Sign - Last Date Time Temp Pulse Resp B/P Pulse Ox O2 Delivery O2 Flow Rate FiO2 02/04/17 04:57 37.5 95 20 134/68 94 Room Air 02/03/17 15:30 2 Intake and Output 02/03/17 02/03/17 02/04/17 Cumulative From/Thru 15:00 23:00 07:00 02/01/17 10:12 - 02/04/17 06:47 Intake Total 1150 ml 800 ml 512 ml 4398 ml Output Total 50 ml 170 ml 650 ml 3720 ml Balance 1100 ml 630 ml -138 ml 678 ml Intake Oral 0 ml 400 ml 2336 ml IV Total 1150 ml 800 ml 112 ml 2062 ml Output Urine Total 170 ml 650 ml 3670 ml Estimated Blood Loss 50 ml 50 ml # Bowel Movements 0 0 Exam GENERAL: Alert, not in distress HEAD: atraumatic, normocephalic EYES: EOMI, anicteric SKIN: Skin color normal, turgor normal. No visible rashes EAR, NOSE, MOUTH, THROAT: Lips, oral mucosa, tongue are moist, pink, no lesions. NECK: no jugulovenous distention; supple ROM normal. RESPIRATORY: Lungs clear to auscultation. CARDIAC: normal S1 and S2; no rubs, or gallops ABDOMEN: Abdomen soft, non-tender. BS normal. MUSCULOSKELETAL: ROM decreased in the left hip secondary to fracture and pain EXTREMITIES: no pitting edema in LE, no new deformities NEURO: Alert, oriented X 3, Cranial nerves II-XII intact, Grossly normal motor function. PULSES: 2+ radial, 2+ carotid REVIEW OF SYSTEMS: GENERAL: no malaise, no fevers, SEE HPI HEENT: Negative for frequent or significant headaches All other reviewed and negative other than HPI. Lab and Diagnostics Result Diagram: 02/01/17 1022 02/01/17 1022 X-Rays, CTs and MRIs PROCEDURE: X-RAY LEFT FEMUR, TWO VIEWS ([id number]) INDICATIONS: trauma TECHNIQUE: 2 views of the femur were acquired. COMPARISON: [facility], CR, XR PELVIS W LATERAL HIP LT, 01/05/2016 , 15:24. FINDINGS: Bones: No dislocations. No suspicious bony lesions. There is a diagonal fracture that extends through the lateral cortex of the proximal left femoral diaphysis, at the axial level of the tip of the femoral component of the arthroplasty. This fracture that extends cephalad its exact exit point more superiorly is not seen. More inferiorly no trauma seen over the femur including at the left knee arthroplasty. Soft tissues: No suspicious soft tissue calcifications or masses. IMPRESSION: Acute appearing fracture involving the lateral cortex of the proximal left femoral diaphysis, immediately adjacent to the tip of the left total hip arthroplasty previously present. Assessment & Plan 71 year old female with a past medical history of hypertension, diabetes, peripheral vascular disease presented to the hospital with left hip pain that started yesterday after the patient tripped and fell on her left side. Patient was diagnosed with Acute appearing fracture involving the lateral cortex of the proximal left femoral diaphysis. Orthopedic surgeon was consulted. Patient had surgery 02/03/2017 Acute appearing fracture involving the lateral cortex of the proximal left femoral diaphysis; s/p surgery 02/03/17 - stable - orhtopedic surgery on the case plan - Heparin for DVT proph - IV and PO opioids for pain - PT eval DM II - stable - Diabetic diet - ISS HTN - stable - hold home meds PVD - stable - continue with ASA/Plavix, DVT PROPHYLAXIS: Heparin Code status: Full code Disposition: discharge after patient improves. Plan of care discussed with treatment team; Labs, radiology tests reviewed. Plan of care, available alternatives were discussed and reviewed with patient. All questions answered. Patient verbalized understanding, approved and agreed to plan of care. Jayden Chand MD Feb 04, 2017 09:31 Jayden Chand MD Feb 04, 2017 09:31
--- NOTE | 2017-02-04 10:38 | PCM.PNORTH ---
Subjective Date of Service: Feb 04, 2017 Visit Information: Reason for Visit Left Femur Fracture Surgery/Surgery Date L FEMUR FX 02/03/17 Post-Op Day # Date of Admission: Feb 01, 2017 at 14:09 Hospital Day # Subjective Foundation awake and alert and well positioned supine in bed with head of bed slightly elevated. No complaints of pain at this time. Discussed participation with formal physical therapy and patient is anticipating this and has been premedicated. Patient expresses desire to be discharged to home with daughter and son-in-law has caregivers and we have discussed safe discharge in terms of her mobility and how she does here at the hospital. We have also discussed outpatient physical therapy and some of the local groups would be available to help with this. Postop General: No Complaints, No Shortness of Breath, No Chest Pain, Good Appetite Pain Management: PO Objective Exam Objective Alert and oriented 3 and pleasant. Mood appropriate. Interoperative dressing is clean dry and intact Toe wiggle and sensation intact at left lower extremity distally Calf and thigh are soft and nontender No physical therapy yet as of this time. Vital Signs and I/O Vital Sign - Last Date Time Temp Pulse Resp B/P Pulse Ox O2 Delivery O2 Flow Rate FiO2 02/04/17 04:57 37.5 95 20 134/68 94 Room Air 02/03/17 15:30 2 Intake and Output 02/03/17 02/03/17 02/04/17 Cumulative From/Thru 15:00 23:00 07:00 02/01/17 10:12 - 02/04/17 06:47 Intake Total 1150 ml 800 ml 512 ml 4398 ml Output Total 50 ml 170 ml 650 ml 3720 ml Balance 1100 ml 630 ml -138 ml 678 ml Intake Oral 0 ml 400 ml 2336 ml IV Total 1150 ml 800 ml 112 ml 2062 ml Output Urine Total 170 ml 650 ml 3670 ml Estimated Blood Loss 50 ml 50 ml # Bowel Movements 0 0 Result Diagram: 02/01/17 1022 02/01/17 1022 General Appearance: Alert, Oriented X3, Cooperative, No Acute Distress Extremities: No Compartment Syndrom Noted, Thigh & Calf Soft/Nontender Postop Sensory Motor: Distal Motor Intact, Movement in Toes, Distal Sensation Intact Activity: Activity per PT, Ambulate with PT (continue formal physical therapy for mobility gait and safety with touch toe weightbearing only at the left lower extremity 6 weeks postop.) Assessment & Plan Plan Postop day #1 from left femoral shaft periprosthetic fracture ORIF on [address] Chris Kramer. Touch toe weightbearing only at the left lower extremity using front wheel walker 6 weeks postop. Continue formal physical therapy for mobility, gait and safety. Continue by mouth pain medications only. Continue resumption of Plavix for DVT prophylaxis MLP will change interoperative dressing on postoperative day #2 Follow up in 2 weeks at [facility] clinic for wound check and suture removal Anticipate discharge to home on or about postop day 2 or 3. Shashi King PA-C Feb 04, 2017 10:38
--- NOTE | 2017-02-04 11:30 | NUR ---
Evaluation completed. Please go to "Notes" then click on "Assessments and Notes" (bottom left corner of screen). Then select appropriate discipline tab on top of screen.
[2017-02-04 14:20] VITALS: BP 125/78; PULSE 59; RESP 16; O2SAT 95
[2017-02-04] MEDS ORDERED: .Epic Conversion Completed XX PRN (16:00)
--- NOTE | 2017-02-04 18:12 | NUR ---
Elevated Blood Sugar/Activity A.m. 204, noon 362 & 1700 239 blood sugars elevated. Patient takes glargine 23units @ hs, not ordered. made aware, 15units @ hs ordered, glargine to be increased based off blood sugars. Patient attempt to work w/ PT this a.m. not successful see note. [place] [facility] [place] difficulty sitting at the edge of bed & keeping torso upright, patient request to lye back shortly after attempt, 3pa to get back in bed comfortably. Stated she'll have a better day tomorrow w/ PT, told her we would pre-medicate her w/ roxycodone 10mg vs 5mg, 5mg ineffective this a.m.
[2017-02-04] MEDS ORDERED: Insulin GLARgine 100 Unit/mL Syringe SUBQ SCH (21:00)
[2017-02-04 21:37] VITALS: BP 131/76; PULSE 89; RESP 18; O2SAT 95
== END 2017-02-05 01:28 | disposition admitted as inpatient to this hospital (09) | DRG 534 ==
LOC: SED 09:05 → OSC 14:09
PROVIDERS: ADMIT Internal Medicine; ATTEND Internal Medicine
DX: S72.402A Unspecified fracture of lower end of left femur, initial encounter for closed fracture (principal)